=== PATIENT | male | born 1995 | race Caucasian/White ===

== ENCOUNTER 2017-03-02 04:07 | Emergency (ER) | payer SELFPAY ==
[~2017-03-02] VITALS: Ht 190.5 cm; Wt 93.2 kg
[2017-03-02 04:12] VITALS: TEMP 97.9
[2017-03-02 05:24] VITALS: BP 140/71; PULSE 68
== END 2017-03-02 05:40 | disposition home or self-care (01) ==
LOC: COL.ER 04:07
DX: M26.69 Other specified disorders of temporomandibular joint (principal)
CPT/HCPCS: J2250; J3010; J7030

== ENCOUNTER 2020-05-28 23:29 | Emergency (ER) | payer SELFPAY ==
[~2020-05-28] VITALS: Wt 95.5 kg
[2020-05-29 02:04] VITALS: BP 128/80; PULSE 58; TEMP 98
== END 2020-05-29 02:04 | disposition home or self-care (01) ==
LOC: COL.ER 23:29
DX: S03.03XA Dislocation of jaw, bilateral, initial encounter (principal); X58.XXXA Exposure to other specified factors, initial encounter
CPT/HCPCS: J2405; J3010; J7030; J7120